=== PATIENT | female | born 1985 | race Caucasian/White ===

== ENCOUNTER 2016-11-28 11:43 | Emergency (ER) | payer MEDICAID ==
[~2016-11-28] VITALS: Ht 170.2 cm; Wt 73.5 kg
--- NOTE | 2016-11-28 11:47 | NUR ---
CAMILO FROM HOME DT UNKOWN ALLERGIC REACTION. PATIENT WAS GIVEN BENADRYL 50MG IV WITH HELP. PATIENT RECEIVED WITH LEFT EYE SWELLING. ABLE TO SPEAK FULL SENTENCE WITH NO DIFFICULTY. SKIN IS WARM TO TOUCH AND NON DIAPHORETIC. AFEBRILE. VSS
[2016-11-28 13:51] VITALS: BP 124/80
--- NOTE | 2016-11-28 13:51 | NUR ---
Patient discharged to home in stable condition. Written and verbal after care instructions given. Patient verbalizes understanding of instruction.
== END 2016-11-28 13:52 | disposition home or self-care (01) ==
LOC: ER 11:44
DX: T78.09XA Anaphylactic reaction due to other food products, initial encounter (principal); Z88.1 Allergy status to other antibiotic agents; Z91.030 Bee allergy status; Y92.89 Other specified places as the place of occurrence of the external cause
CPT/HCPCS: A4606; J0171; J7030; Z7610